=== PATIENT | female | born 1970 | race Caucasian/White ===

== ENCOUNTER → 2016-08-11 | Outpatient (CLI) | payer OTHER | LOC: KOH-I 09:03 | DX: M79.644 Pain in right finger(s) (principal) | CPT/HCPCS: 73130 ==

== ENCOUNTER 2021-10-24 15:39 | Emergency (ER) | payer BC ==
[2021-10-24 16:42] LABS: HEMOGLOBIN 14.6 gm/dl (12.3-15.3); RED BLOOD COUNT 4.6 M/UL (4.00-5.10); WHITE BLOOD COUNT 6.4 K/UL (4.5-11.0)
[2021-10-24 17:03] LABS: BUN/CREATININE RATIO 16 (0-10)
== END 2021-10-24 18:42 | disposition home or self-care (01) ==
LOC: ER1 15:39
DX: F41.9 Anxiety disorder, unspecified (principal); R06.00 Dyspnea, unspecified; R53.1 Weakness; R06.02 Shortness of breath; Z88.0 Allergy status to penicillin
CPT/HCPCS: 70450; 71045; 80053; 82550; 82553; 84484; 85025; 93005; 99285